=== PATIENT | female | born 2000 | race Caucasian/White ===

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

== ENCOUNTER 2020-08-16 21:14 | Emergency (ER) | payer OTHER ==
[~2020-08-16] VITALS: Ht 182.9 cm; Wt 82.1 kg
--- NOTE | 2020-08-16 21:44 | NUR ---
PT GIVEN BLANKETS, PT STATES NO OTHER NEEDS, LAB AT BEDSIDE.
[2020-08-16] MEDS ORDERED: ONDANSETRON 2MG/ML, 2ML ONE (21:53)
[2020-08-16] MEDS ORDERED: FAMOTIDINE 20 MG/2 ML ONE (21:53)
[2020-08-16] MEDS ORDERED: MORPHINE SULFATE 4 MG/ML, 1ML ONE ×2 (21:53→23:32)
[2020-08-16] MEDS ORDERED: ONDANSETRON 2MG/ML, 2ML IVPush ONE (22:00)
[2020-08-16] MEDS ORDERED: SODIUM CHLORIDE 0.9% 1,000ML IVBOLUS ONE (22:00)
[2020-08-16] MEDS ORDERED: FAMOTIDINE 20 MG/2 ML IVPush ONE (22:00)
[2020-08-16 22:03] LABS: BASOPHILS % (AUTO) 1 % (0-1); EOSINOPHILS % (AUTO) 2 % (1-7); LYMPHOCYTES % (AUTO) 37 % (22-44); MEAN CORPUSCULAR HEMOGLOBIN 30.7 pg (27.0-34.8); MEAN CORPUSCULAR HGB CONC 33.6 g/dL (32.4-35.8); MEAN PLATELET VOLUME 10.7 fL (7.4-10.4); MONOCYTES % (AUTO) 8 % (2-9); NEUTROPHILS % (AUTO) 52 % (42-75); PLATELET COUNT 195 x10^3/uL (130-400); RED BLOOD COUNT 4.91 x10^6/uL (3.82-5.3); RED CELL DISTRIBUTION WIDTH 12.5 % (9.6-15.2)
[2020-08-16 22:05] LABS: ALANINE AMINOTRANSFERASE 28 U/L (12-78); ANION GAP 6 mmol/L (5-15); CALCIUM 8.7 mg/dL (8.5-10.1); CHLORIDE 107 mmol/L (98-107)
[2020-08-16 22:06] LABS: MD NO
[2020-08-16 22:11] LABS: ALKALINE PHOSPHATASE 63 U/L (45-117); BILIRUBIN,TOTAL 1.6 mg/dL (0.2-1.0); CREATININE 0.88 mg/dL (0.55-1.02); TOTAL PROTEIN 7.3 g/dL (6.4-8.2)
[2020-08-16] MEDS: MORPHINE SULFATE 4 MG/ML, 1ML IVPush PRN ×2 (22:12→23:35)
--- NOTE | 2020-08-16 22:22 | NUR ---
PT IN RESTROOM ATTEMPTING UA AT THIS TIME
--- NOTE | 2020-08-16 23:09 | NUR ---
PT ATTEMPTING TO PROVIDED UA SAMPLE AGAIN
[2020-08-16 23:34] LABS: MICROSCOPIC NOT IND
--- NOTE | 2020-08-16 23:40 | NUR ---
pt states 6/10 pain, medicated per emar
[2020-08-16 23:43] VITALS: BP 122/69
[2020-08-17] MEDS ORDERED: ONDANSETRON 2MG/ML, 2ML IVPush ONE
== END 2020-08-17 00:20 | disposition home or self-care (01) ==
LOC: ED 23:55
DX: K29.00 Acute gastritis without bleeding (principal)
CPT/HCPCS: 36415; 80053; 81003; 83690; 84703; 85025; 96361; 96374; 96375; 96376; 99284; J2270; J2405; J7030

== ENCOUNTER 2020-08-25 22:45 | Emergency (ER) | payer OTHER ==
[~2020-08-25] VITALS: Ht 182.9 cm; Wt 79.3 kg
[2020-08-25 22:47] VITALS: BP 141/89
[2020-08-26] MEDS ORDERED: FAMOTIDINE 20 MG TABLET PO ONE
[2020-08-26] MEDS ORDERED: MAALOX/HYOSCYAMINE/LIDOCAINE 45 ML BTL PO ONE
--- NOTE | 2020-08-26 | NUR ---
RENATO WILLAMS IN ROOM FOR EVAL. MOTHER IN ROOM FOR SAFETY.
--- NOTE | 2020-08-26 00:05 | NUR ---
THIS IS A 20 YO FEMALE COMING IN WITH PARENT. WAS SEEN HERE A WEEK AGO, HAS HAD SEVERE STOMACH PAINS. UNABLE TO GET INTO PCP OR GI. TONIGHT HAD AN "EMOTIONAL BREAKDOWN", BREAK UP WITH ERIC CARRERA ON SCENE. PT ADMITTED TO SEVERE DEPRESSION AND SI. PT STATES SHE HAS A PLAN TO HANG HERSELF. PT HAS HAD SI BEFORE BUT NO Hx SA. NO PSYCH CARE IN THE PAST. MOM AT SIDE. PT ALSO STATES SHE'S BEEN HAVING EXTREME STOMACH PAIN, BLOODY AND BLACK STOOLS. UNABLE TO EAT FOR LONG PERIODS OF TIME AND EPIGASTRIC PAIN. MOTHER IN ROOM FOR SAFETY. PATIENT TEARFUL, STATES "THIS HAPPENS SOMETIMES, BUT IT GOES AWAY, LIKE THE DEPRESSION". CALL LIGHT IN REACH
--- NOTE | 2020-08-26 00:08 | NUR ---
PATIENT AMBULATORY WITH STEADY GAIT TO RESTROOM, UA CUP GIVEN
--- NOTE | 2020-08-26 00:12 | NUR ---
UA collected and sent
[2020-08-26 00:16] LABS: BASOPHILS % (AUTO) 0 % (0-1); EOSINOPHILS % (AUTO) 0 % (1-7); LYMPHOCYTES % (AUTO) 15 % (22-44); MEAN CORPUSCULAR HEMOGLOBIN 30.5 pg (27.0-34.8); MEAN CORPUSCULAR HGB CONC 33.6 g/dL (32.4-35.8); MEAN PLATELET VOLUME 11.1 fL (7.4-10.4); MONOCYTES % (AUTO) 7 % (2-9); NEUTROPHILS % (AUTO) 78 % (42-75); PLATELET COUNT 192 x10^3/uL (130-400); RED BLOOD COUNT 4.83 x10^6/uL (3.82-5.3); RED CELL DISTRIBUTION WIDTH 12.7 % (9.6-15.2)
[2020-08-26 00:17] LABS: MD NO
[2020-08-26 00:20] LABS: ALANINE AMINOTRANSFERASE 24 U/L (12-78); ALBUMIN 4.2 g/dL (3.4-5.0); ANION GAP 4 mmol/L (5-15); CALCIUM 8.9 mg/dL (8.5-10.1); CHLORIDE 110 mmol/L (98-107); CREATININE 0.78 mg/dL (0.55-1.02)
[2020-08-26 00:23] LABS: ALKALINE PHOSPHATASE 65 U/L (45-117); BILIRUBIN,TOTAL 2.5 mg/dL (0.2-1.0); TOTAL PROTEIN 7.3 g/dL (6.4-8.2)
[2020-08-26] MEDS ORDERED: FAMOTIDINE 20 MG TABLET ONE (00:23)
[2020-08-26] MEDS ORDERED: MAALOX/HYOSCYAMINE/LIDOCAINE 45 ML BTL ONE (00:23)
[2020-08-26 00:35] LABS: AMPHETAMINE SCREEN, URINE Negative (Negative); BARBITURATE SCREEN, URINE Negative (Negative); BENZODIAZEPINE SCREEN, URINE Negative (Negative); CANNABINOID SCREEN, URINE Negative (Negative); COCAINE SCREEN, URINE Negative (Negative); METHADONE SCREEN, URINE Negative (Negative); OPIATE SCREEN, URINE Negative (Negative)
--- NOTE | 2020-08-26 00:35 | NUR ---
PATIENT MEDICATED PER EMAR, TOLERATED WELL
[2020-08-26 00:40] LABS: SALICYLATE LEVEL < 1.7 mg/dL (2.8-20.0)
--- NOTE | 2020-08-26 01:00 | NUR ---
Telepsych set up in room
--- NOTE | 2020-08-26 02:12 | NUR ---
REPORT RECEIVED FROM MONTSE Gaines RN. PT MOVED TO ED3 FOR SECURED ROOM.
--- NOTE | 2020-08-26 02:14 | NUR ---
Spoke with telepsych regarding faxed report. Will be faxed over.
--- NOTE | 2020-08-26 02:45 | NUR ---
PT PROVIDED MEAL AND WATER, MOTHER AT FOR SUPPORT. DISCUSSED POC. ROOM SECURED, SITTER IN HALLWAY WITHIN LINE OF SIGHT.
--- NOTE | 2020-08-26 02:49 | NUR ---
Faxed packet to [facility].
--- NOTE | 2020-08-26 02:53 | NUR ---
Packet faxed to [facility], [facility], [facility], [facility].
--- NOTE | 2020-08-26 03:46 | NUR ---
TALIA MICHELLE, DR KEYS ADMITTING , BRETT RN.
--- NOTE | 2020-08-26 03:50 | NUR ---
PT RESTING ON GURNEY, RESPIRATIONS EVEN AND NONLABORED. ROOM SECURED, SITTER IN HALLWAY WITHIN LINE OF SIGHT.
== END 2020-08-26 04:41 | disposition home or self-care (01) ==
LOC: ED 23:15
DX: R45.851 Suicidal ideations (principal); F32.9 Major depressive disorder, single episode, unspecified; R10.9 Unspecified abdominal pain
CPT/HCPCS: 36415; 80053; 80307; 83690; 84703; 85025; 99285